=== PATIENT | male | born 1975 | race Caucasian/White ===

== ENCOUNTER 2023-06-03 23:00 | Emergency (ER) | payer OTHER ==
[~2023-06-03] VITALS: Ht 170.2 cm; Wt 93.0 kg
[2023-06-04 00:10] VITALS: BP 160/90; PULSE 80; RESP 16; TEMP 98; O2SAT 98
[2023-06-04] MEDS ORDERED: DEXAMETHASONE 10 MG/ML VIAL ONE (02:49)
[2023-06-04] MEDS ORDERED: ACETAMINOPHEN EXTRA STRENGTH 500 MG TAB ONE (02:49)
[2023-06-04] MEDS ORDERED: KETOROLAC 60 MG/2 ML VIAL IM ONE (02:50)
[2023-06-04 04:57] LABS: FLU A ANTIGEN negative (NEGATIVE); FLU B ANTIGEN NEGATIVE (NEGATIVE)
== END 2023-06-04 04:16 | disposition home or self-care (01) ==
LOC: MED 23:00
DX: J06.9 Acute upper respiratory infection, unspecified (principal); Z20.822 Contact with and (suspected) exposure to COVID-19; H10.89 Other conjunctivitis; B97.89 Other viral agents as the cause of diseases classified elsewhere; Z79.899 Other long term (current) drug therapy
CPT/HCPCS: 71045; 87081; 87426; 87804; 99284; J1100; J1885